=== PATIENT | male | born 1940 | race Caucasian/White ===

== ENCOUNTER 2023-07-28 19:20 | Emergency (ER) | payer OTHER ==
[2023-07-28 19:27] VITALS: BP 119/61; PULSE 69; RESP 17; TEMP 97.6; BMI 22.4
[2023-07-28] MEDS ORDERED: ACETAMINOPHEN INJECTION 100 ML IVPB ONE (20:32)
[2023-07-28] MEDS ORDERED: KETOROLAC TROMETHAMINE 15 MG/ML VIAL ONE (20:33)
[2023-07-28] MEDS: KETOROLAC TROMETHAMINE 30 MG/1 ML VIAL IVPUSH ONE (20:36)
[2023-07-28] MEDS: ACETAMINOPHEN 1000 MG/100 ML BAG IVPB ONE (20:37)
[2023-07-28] MEDS ORDERED: DEXAMETHASONE SOD PHOSPHATE 10 MG/1 ML VIAL ONE (20:40)
[2023-07-28 20:43] LABS: HEMATOCRIT 36.3 % (35.4-49); HEMOGLOBIN 12.1 G/dL (11.7-16.9); MCH 30.1 pg (25.7-33.7); MCHC 33.4 g/dl (32.0-35.9); MEAN CELL VOLUME 90.1 fl (80-96); MEAN PLT VOLUME 8.1 fl (7.5-11.1); PLATELET COUNT 281.1 10^3/uL (134-434); RBC 4.03 10^6/uL (4.00-5.60); WHITE BLOOD COUNT 11.9 10^3/uL (4.0-10.8)
[2023-07-28] MEDS: DEXAMETHASONE SOD PHOSPHATE 10 MG/1 ML VIAL IM ONE (20:43)
[2023-07-28 20:55] LABS: PLATELET ESTIMATE ADEQUATE
[2023-07-28 20:57] LABS: ALBUMIN 4.3 g/dl (3.4-5.0); BILIRUBIN,TOTAL 0.5 mg/dl (0.2-1); CALCIUM 9.5 mg/dl (8.5-10.1); CREATININE 1.1 mg/dl (0.6-1.3); TOT PROT 6.6 g/dl (6.4-8.2)
[2023-07-28] MEDS ORDERED: BUPIVACAINE HCL/PF 0.25% (2.5MG/ML) 10 ML VIAL ONE (20:57)
[2023-07-28] MEDS: BUPIVACAINE HCL 0.25% 125 MG/50 ML VIAL INF ONE (21:45)
[2023-07-29 00:12] LABS: N-TERMINAL BNP 482.4 pg/ml (5-450)
== END 2023-07-28 22:37 | disposition home or self-care (01) ==
LOC: FER 19:20
PROC: 3E033NZ Introduction of Analgesics, Hypnotics, Sedatives into Peripheral Vein, Percutaneous Approach (ICD-10-PCS; principal; 2023-07-28)
PROC: 3E0333Z Introduction of Anti-inflammatory into Peripheral Vein, Percutaneous Approach (ICD-10-PCS; 2023-07-28)
PROC: 3E023GC Introduction of Other Therapeutic Substance into Muscle, Percutaneous Approach (ICD-10-PCS; 2023-07-28)
DX: M79.602 Pain in left arm (principal); M25.512 Pain in left shoulder; M62.838 Other muscle spasm; R01.1 Cardiac murmur, unspecified
CPT/HCPCS: 36415; 71045-TC-FY; 80053; 83880; 84484; 85027; 93005; 99285-25; J0131; J1100